=== PATIENT | female | born 2000 | race Two or more races ===

== ENCOUNTER 2023-05-05 18:03 | Emergency (ER) | payer OTHER, SELFPAY ==
--- NOTE | ~2023-05-05 | XR_ITS ---
EXAMINATION: XR chest 1V portable DATE: 05/05/2023 19:03 INDICATION: Productive cough TECHNIQUE: frontal view of the chest was obtained. COMPARISON: None FINDINGS: The lungs are clear with no focal airspace opacities, pulmonary edema, pleural effusion or pneumothor ax. The cardiomediastinal silhouette is normal. Visualized bones and soft tissues are unremarkable. IMPRESSION: 1. Normal chest radiograph. Reviewed, dictated and finalized at location A. [facility] IMPRESSION: 1. Normal chest radiograph.
[2023-05-05 18:16] VITALS: BP 117/77; PULSE 100; RESP 16; TEMP 37.1; O2SAT 100
--- NOTE | 2023-05-05 19:07 | ED.GENADULT ---
HPI - General Adult General Chief complaint: Upper Respiratory Infection Stated complaint: UPPER RESP FEVER [id number] Time Seen by Provider: 05/05/23 18:39 Source: patient Mode of arrival: ambulatory Limitations: no limitations History of Present Illness HPI narrative: This is a 23-year-old female who presents to the ED with chief complaint of cough, congestion, fevers and headache for the past 2 weeks. Reports started out as a cough and congestion and since has progressed to productive cough with more headache. She has taken Tylenol that helps temporarily. Denies neck pain, neck stiffness, abdominal pain, chest pain. Denies hemoptysis. Related Data Allergies Allergy/AdvReac Type Severity Reaction Status Date / Time No Known Allergies Allergy Verified 05/05/23 18:42 Review of Systems Review of Systems: All systems as dictated in HPI Exam Narrative: GENERAL: Well-appearing, well-nourished, and in no acute distress. HEAD: Normocephalic, atraumatic. EYES: PERRLA and EOMI. ENT: Nares clear, no rhinorrhea or epistaxis. Mucous membranes moist. Oropharynx without tonsillar hypertrophy exudate or other lesions. NECK: Supple. No adenopathy or masses. No meningeal signs CHEST: No respiratory distress. Clear to auscultation. No wheezes rales or rhonchi HEART: Regular rate and rhythm. No murmur heard. Normal peripheral pulses. ABDOMEN: Soft, nontender, nondistended, normal active bowel sounds. MSK: Normal range of motion. No edema. SKIN: Warm, dry, no rash. NEURO: Alert and oriented x3. No focal deficits. PSYCH: Normal mood and affect. Course Vital Signs Vital signs: Vital Signs Temperature 98.8 F 05/05/23 18:16 Pulse Rate 100 05/05/23 18:16 Respiratory Rate 16 05/05/23 18:16 Blood Pressure 117/77 05/05/23 18:16 Pulse Oximetry 100 05/05/23 18:16 Oxygen Delivery Room Air 05/05/23 18:16 Temperature 98.8 F 05/05/23 18:16 Pulse Rate 100 05/05/23 18:16 Respiratory Rate 16 05/05/23 18:16 Blood Pressure 117/77 05/05/23 18:16 Pulse Oximetry 100 05/05/23 18:16 Oxygen Delivery Room Air 05/05/23 18:40 Medical Decision Making MDM Narrative Medical decision making narrative: This is a 23-year-old female who presents to the ED with chief complaint of your eye symptoms for the past 2 weeks including productive cough. Vitals are normal. Exam is benign. Chest x-ray is normal. Blood work normal. Viral swabs positive for flu A. Symptoms consistent with upper respiratory infection but she may have some superimposed bacterial sinusitis. Prescribing Augmentin for this. She improved greatly with Toradol here. Pt will be discharged in stable condition. Return precautions given and supportive measures discussed. Pt is understanding and agreeable with plan for discharge and follow-up with PCP. Vital Signs Vital Signs: Vital Signs Temperature 98.8 F 05/05/23 18:16 Pulse Rate 100 05/05/23 18:16 Respiratory Rate 16 05/05/23 18:16 Blood Pressure 117/77 05/05/23 18:16 Pulse Oximetry 100 05/05/23 18:16 Oxygen Delivery Room Air 05/05/23 18:16 Temperature 98.8 F 05/05/23 18:16 Pulse Rate 100 05/05/23 18:16 Respiratory Rate 16 05/05/23 18:16 Blood Pressure 117/77 05/05/23 18:16 Pulse Oximetry 100 05/05/23 18:16 Oxygen Delivery Room Air 05/05/23 18:40 Lab Data Labs: Lab Results 05/05/23 Range/Units 18:17 Influenza A (RT-PCR) Pending Influenza B (RT-PCR) Pending RSV (RT-PCR) Pending SARS-CoV-2 RNA (RT-PCR) Pending Discharge Plan Discharge Clinical Impression: Influenza A Patient Disposition: Home, Self-Care Condition: Stable Instructions: Antibiotic Form Additional Instructions: Your exam today shows evidence of influenza A. Please follow-up with your PCP as needed. It is likely that you have a superimposed bacterial sinus infection. Please take antibiotics as prescribed. Use Tylenol and
[2023-05-05 19:08] LABS: Influenza A QL RT-PCR Positive (Negative); Influenza B QL RT-PCR Negative (Negative); RSV RNA, RT-PCR Negative (Negative); SARS-CoV-2 RNA PCR Negative (Negative)
[2023-05-05] MEDS: KETOROLAC 15 MG/ML VIAL (*BKC) IV PUSH (19:08)
[2023-05-05 19:13] LABS: Basophils Percent Auto 0.2 % (0.2-1.2); Eosinophils Percent Auto 0.4 % (0-4.4); Hematocrit 35.7 % (37.0-47.0); Immature Granulocyte Absolute 0.04 K/mm3 (0.00-0.031); Immature Granulocyte Percent A 0.4 % (0-0.5); Lymphocytes Absolute Auto 2.01 K/mm3 (0.9-3.2); Lymphocytes Percent Auto 18.6 % (18.3-44.2); Mean Corpuscular HGB Conc 30.8 g/dl (32-36); Mean Corpuscular Hemoglobin 22.4 pg (26-34); Mean Corpuscular Volume 72.7 fl (80-100); Mean Platelet Volume 9.7 fl (7.4-10.4); Monocytes Absolute Auto 0.5 K/mm3 (0.1-0.6); Monocytes Percent Auto 4.2 % (2.6-8.5); Neutrophils Absolute Auto 8.3 K/mm3 (1.3-6.7); Neutrophils Percent Auto 76.2 % (45.5-73.1); Platelet Count Result 320 k/mm3 (150-375); Red Blood Count 4.91 M/mm3 (4.2-5.4); Red Cell Distribution Width 16.2 % (11.5-14.5); White Blood Count 10.8 K/mm3 (4.5-10.0)
[2023-05-05 19:23] LABS: Alanine Aminotransferase 15 U/L (6-35); Albumin Level 4.5 g/dL (3.5-5.1); Alkaline Phosphatase 82 U/L (38-126); Anion Gap 9 mmol/L (8-16); Aspartate Amino Transferase 26 U/L (14-36); Bilirubin,Total 0.6 mg/dL (0.2-1.3); Blood Urea Nitrogen 8 mg/dL (7-17); Calcium 9.3 mg/dL (8.4-10.2); Carbon Dioxide 25 mmol/L (22-30); Chloride 104 mmol/L (98-107); Estimated CRCL calculation 113 ml/min; Estimated Glomerular Filt Rate > 60; Glucose 91 mg/dL (65-110); Hypochromasia 1+ (NORMAL); Large Platelets Present; Platelet Estimate Adequate (Adequate); Sodium 138 mmol/L (137-145)
[2023-05-05 19:24] LABS: Microcytosis 1+ (NORMAL); Ovalocytes 1+ (NORMAL); Schistocytes None Seen (NORMAL)
[2023-05-05 19:55] VITALS: BP 124/76; PULSE 67; RESP 15; TEMP 37; O2SAT 100
== END 2023-05-05 19:56 | disposition home or self-care (01) ==
PROVIDERS: Emergency Provider Physician Assistant
DX: J10.1 Influenza due to other identified influenza virus with other respiratory manifestations (principal); Z20.822 Contact with and (suspected) exposure to COVID-19
CPT/HCPCS: 36415; 71045; 80053; 85025; 87637; 96374; 99284; J1885